=== PATIENT | male | born 1995 ===

== ENCOUNTER → 2025-01-27 06:58 | Outpatient (CLI) | payer OTHER ==
[2025-01-27 08:09] LABS: PH,URINE 5.5 (5.0-8.0); URINE APPEARANCE Clear; URINE BILIRRUBIN Negative (NEGATIVE); URINE BLOOD Negative; URINE COLOR Yellow; URINE GLUCOSE Negative (NEGATIVE); URINE KETONE Trace (NEGATIVE); URINE LEUKOCYTE Negative; URINE NITRATE Negative; URINE PROTEIN Negative (NEGATIVE); URINE UROBILINOGEN 0.2 E.U./dl
[2025-01-27 08:13] LABS: BASO % 0.5 % (0.1-1.2); EOS # 0.09 (0.04-0.54); EOS % 1.4 % (0.7-7.0); HEMATOCRIT 42.2 % (40.1-51.0); HEMOGLOBIN 14.3 g/dL (13.7-17.5); LYMPH % 33.8 % (19.3-53.1); MEAN CORPUSCULAR HEMOGLOBIN 27.9 pg (25.6-32.2); MONO % 6.2 % (4.7-12.5); NEUT # 3.77 (1.56-6.13); NEUT % 57.9 % (34.0-71.1); PLATELET COUNT 283 K/uL (163-369); RED BLOOD COUNT 5.12 M/uL (4.63-6.08); RED CELL DISTRIBUTION WIDTH 12.1 % (11.6-14.4); URINE BACTERIA 18.3 uL (0.0-1933); URINE RBC 3.3 uL (0.0-20.8); URINE WBC 4.8 uL (0.0-23.2)
[2025-01-27 08:25] LABS: URINE CAST 0.14 uL (0.0-1.40); URINE EPITHELIAL CELLS 0.7 uL (0.0-38.8)
[2025-01-27 09:38] LABS: ALBUMIN 3.6 gm/dL (3.4-5.0); BILIRUBIN TOTAL 0.19 mg/dL (0.3-1.2); CALCIUM 9.1 mg/dL (8.5-10.1); CHOL HDL RATIO 2.8 (0-5.0); CREATININE SERUM 1.16 mg/dL (0.70-1.30); GFR 73.43; GLOBULINA 3.1 G/DL (2.4-3.5); POTASSIUM 4.28 mEq/L (3.5-5.1); T4 FREE 0.87 NG/ML (0.76-1.46); TOTAL PROTEIN 6.7 gm/dL (6.4-8.2); TSH 2.91 uIU/mL (0.358-3.74)
[2025-01-27 10:45] LABS: VITAMIN D3 25 HYDROXY 36.02 ng/ml (30-120)
== END | disposition home or self-care (01) ==
LOC: LAB 06:58 → EDBD 06:58
DX: D64.9 Anemia, unspecified (principal); E03.9 Hypothyroidism, unspecified; N39.0 Urinary tract infection, site not specified; E55.9 Vitamin D deficiency, unspecified; R74.02 Elevation of levels of lactic acid dehydrogenase [LDH]; Z13.220 Encounter for screening for lipoid disorders; N91.2 Amenorrhea, unspecified; E53.9 Vitamin B deficiency, unspecified; R73.9 Hyperglycemia, unspecified